=== PATIENT | female | born 1990 | race African-American/Black ===

== ENCOUNTER 2017-01-07 11:17 | Emergency (ER) | payer SELFPAY ==
[~2017-01-07] VITALS: Ht 167.6 cm; Wt 52.2 kg
[2017-01-07 12:19] LABS: Albumin 4.1 g/dL (3.4-5.0); BUN/Creatinine Ratio 11.8; Bilirubin, Total 1.3 mg/dL (0.2-1.0); Calcium 8.8 mg/dL (8.5-10.1); Potassium 3.6 mmol/L (3.5-5.1); Total Protein 8.3 g/dL (6.4-8.2)
[2017-01-07 12:38] LABS: CONDITION Y; DEFINITIVE SEE PRINTOUT; Hematocrit 23.5 % (36.0-46.0); Hemoglobin 8.2 g/dL (12.2-16.2); Mean Corpuscular Hemoglobin 41.8 pg (28.0-32.0); Mean Corpuscular Hgb Conc. 34.8 g/dL (32.0-36.0); Mean Corpuscular Volume 119.9 fL (80.0-100.0); Platelet Count (auto) 91 10^3/uL (140-450); SUSPECT SEE PRINTOUT; White Blood Cell 2.5 10^3/uL (4.4-10.8)
[2017-01-07 12:41] LABS: Metamyelocytes % 0; Myelocytes % 0; Promyelocytes % 0; Reactive Lymphocytes 0
[2017-01-07] MEDS ORDERED: ONDANSETRON HCL 4 MG/2 ML VIAL IV ONE (13:30)
[2017-01-07] MEDS ORDERED: SODIUM CHLORIDE 0.9% 1,000 ML IV ONE (13:30)
[2017-01-07] MEDS ORDERED: diphenhdrAMINE HCL 50 MG/1 ML VL IV ONE (13:30)
[2017-01-07] MEDS ORDERED: HYDROmorphone HCL 2 MG/ML VL IV ONE (13:30)
[2017-01-07 13:37] LABS: Platelet Estimate Decreased
[2017-01-07 13:39] LABS: Polychromasia Slight; Schistocytes FEW
[2017-01-07 13:40] LABS: Anisocytosis Marked; Macrocytosis Marked
[2017-01-07 14:06] VITALS: BP 113/56
[2017-01-07 14:42] LABS: Urine RBC None Seen /hpf (0 - 4)
[2017-01-07 15:17] LABS: Urine Bilirubin Negative (Negative); Urine Blood Negative /uL (Negative); Urine Color Yellow (Yellow); Urine Glucose Normal (Normal); Urine Ketone Negative (Negative); Urine Nitrite Negative (Negative); Urine Squamous Epithelial Cell FEW /hpf (<5); Urine Urobilinogen Normal (Negative)
== END 2017-01-07 15:38 | disposition home or self-care (01) ==
LOC: ER 11:22
DX: D57.1 Sickle-cell disease without crisis (principal); Z88.6 Allergy status to analgesic agent
CPT/HCPCS: 36415; 80053; 81001; 85007; 85027; 94761; 96361; 96374; 96375; 99284; J1170; J1200; J2405; J7030